=== PATIENT | female | born 1985 | race Caucasian/White ===

== ENCOUNTER 2018-07-10 15:23 | Emergency (ER) | payer BC ==
[2018-07-10 15:40] VITALS: BP 110/66
--- NOTE | 2018-07-11 12:55 | UC ---
- Progress Note Progress Note: LWBS. NO IMAGING Discharge - Sign-Out/Discharge Documenting (check all that apply): Post-Discharge Follow Up All imaging exams completed and their final reports reviewed: No Studies - Discharge Plan Disposition: LEFT WITHOUT BEING SEEN Referrals: Robina Garcia MD [Primary Care Provider] - - Billing Disposition and Condition Disposition: Left Without Being Seen
== END 2018-07-10 16:50 | disposition left against medical advice (07) ==
LOC: UCEAST 15:23
DX: J06.9 Acute upper respiratory infection, unspecified (principal); Z53.21 Procedure and treatment not carried out due to patient leaving prior to being seen by health care provider

== ENCOUNTER 2018-07-17 00:35 | Emergency (ER) | payer BC ==
--- OUTSIDE RECORDS SUMMARY | 2018-07-17 00:56 | XMS REPORT ---
:1985 Author Organization [facility] OBN Address [address] [place] [address] Care Team Providers Name Role Phone Aleshia Saxena Unavailable Unavailable PROBLEMS Type Condition ICD9-CM [id number] Onset Condition SNOMED Code Code Code Dates Status Problem Irregular N92.6 Active 52385670 menstruation, unspecified Problem Pelvic and R10.2 Active 293951325 perineal pain Problem Dysmenorrhea, N94.6 Active 164234980 unspecified Problem Benign N85.01 Active 285922600824735 endometrial hyperplasia Problem Displacement of T83.32XD Active 62015820111745533 intrauterine contraceptive device, subsequent encounter Problem Family history of Z80.3 Active 227462404 malignant neoplasm of breast Problem Unspecified K29.51 Active chronic gastritis with bleeding Problem Personal history Z85.850 Active 405594411 of malignant neoplasm of thyroid Problem Unspecified N83.202 Active 33847450249092796 ovarian cyst, left side Problem Lichen simplex L28.0 Active 40278330 chronicus ALLERGIES Substance Reaction Event Type Date Status tetracycline unsure/childhood Drug Allergy Jul, Active ENCOUNTERS Encounter Location Date Diagnosis [address] Aug, [facility] [address] [place], [place] [id number] [address] Jul, [facility] [address] [place], [place] [id number] Formerly [facility] 103 Jul, Encounter for OBGYN [facility], gynecological examination [place] [id number] (general) (routine) without abnormal findings Z01.419 ; Pelvic and perineal pain R10.2 ; Encounter for screening for malignant neoplasm of cervix Z12.4 ; Unspecified ovarian cyst, left side N83.202 ; Encounter for screening for infections with a predominantly sexual mode of transmission Z11.3 ; Lichen simplex chronicus L28.0 ; Benign endometrial hyperplasia N85.01 ; Displacement of intrauterine contraceptive device, subsequent encounter T83.32XD and Family history of malignant neoplasm of breast Z80.3 [place] [facility] 103 Jul, Benign endometrial OBGYN [facility], hyperplasia N85.01 ; [place] [id number] Unspecified ovarian cyst, left side N83.202 and Encounter for routine checking of intrauterine contraceptive device Z30.431 [place] [facility] 103 May, OBG[place] [id number] [place] [facility] 103 May, [place] [id number] [place] [facility] 103 May, [place] [id number] [place] [facility] 103 May, [place] [id number] [place] [facility] 103 January, [place] [address] [place] [facility] 103 January, [place] [id number] [place] [facility] 103 January, [place] [id number] [place] [facility] 103 Jan, [place] [id number] [place] [facility] 103 Dec, Irregular menstruation, OBGYN [facility], unspecified N92.6 ; Pelvic [place] [id number] and perineal pain R10.2 and Unspecified ovarian cyst, left side N83.202 [place] [facility] 103 Dec, Left lower quadrant pain OBGYN [facility], R10.32 ; [place] [id number] menstruation, unspecified N92.6 and Encounter for routine checking of intrauterine contraceptive device Z30.[address] [facility] Dec, Irregular menstruation , O[address] [place] [address], unspecified N92.6 and [place] [id number] Displacement of intrauterine contraceptive device, [facility] encounter T[facility].32[facility] 28 Jun, 2017 OBGYN [facility] [place] [id number] [facility] May, [facility]hen simplex [facility] L28.0 ; [place] [id number] menstruation, unspecified N92.6 and Unspecified chronic gastritis with bleeding K29.51 [facility] 103 May, [facility] menstruation, [facility], unspecified N92.6 ; Pelvic [place] [id number] and perineal pain R10.2 and Encounter for routine checking of intrauterine contraceptive device Z30.431 [place] [facility] [address] [place] [address] [facility] Apr, Noninflammatory disorder [facility] [place] [address], of vulva and perineum, [place] [address] unspecified N90.[address] [place] [address] Apr, Dysmenorrhea, unspecified [address] [place] [address], N94.6 ; [place] [id number] menstruation, unspecified N92.6 ; Pelvic and perineal pain R10.2 ; Personal history of malignant neoplasm of thyroid Z85.850 ; Unspecified chronic gastritis with bleeding K29.51 and Noninflammatory disorder of vulva and perineum, unspecified N90.9 [facility] Apr, [place] [address] [address] January, Encounter for insertion of [address] [place], intrauterine contraceptive [place] [id number] device Z30.430 [facility] January, O[place] [id number] [facility] 103 January, [place] [id number] [address] January, Dysmenorrhea, unspecified [address]BG[address] [place], N94.6 ; [place] [id number] menstruation, unspecified N92.6 ; Pelvic and perineal pain R10.2 ; Personal history of malignant neoplasm of thyroid Z85.850 and Unspecified chronic gastritis with bleeding K29.[address] Jan, Dysmenorrhea, unspecified OBG[address] [place], N94.6 ; [place] [id number] menstruation, unspecified N92.6 and Pelvic and perineal pain R10.2 [facility] Dec, [place] [id number] [facility] 103 Nov, [place] [id number] [facility] 103 Oct, O[place], [place] [id number] [facility] 103 Oct, Dysmenorrhea, unspecified [facility], N94.6 ; [place] [id number] menstruation, unspecified N92.6 ; Pelvic and perineal pain R10.2 and Personal history of malignant neoplasm of thyroid Z85.850 [facility] [address], Oct, Dysmenorrhea, unspecified [facility] [place] [id number] N94.6 ; Pelvic and perineal pain R10.2 ; Polyp of corpus uteri N84.0 and Irregular menstruation, unspecified N92.[address] Oct, Dysmenorrhea, unspecified OBGYN [address] [place], N94.6 ; [place] [id number] menstruation, unspecified N92.6 ; Pelvic and perineal pain R10.2 and Personal history of malignant neoplasm of thyroid Z85.850 [facility] Sep, [place] [id number] [facility] 103 Sep, [place] [id number] [address] Sep, Dysmenorrhea, unspecified OBG[address] [place], N94.6 ; [place] [id number] menstruation, unspecified N92.6 ; Pelvic and perineal pain R10.2 and Personal history of malignant neoplasm of thyroid Z85.850 [facility] 103 Aug, [place] [id number] [address] Aug, Irregular menstruation , [address] [place], unspecified N92.6 ; [place] [id number] Dysmenorrhea, unspecified N94.6 and Pelvic and perineal pain R10.2 [facility] 103 08 Aug, 2016 Pelvic [facility]al [facility], R10.2 ; D[place]menorrhea, [place] [id number] unspecified N94.6 and [place] menstruation, unspecified N92.6 [facility] 103 08 Aug, 2016 Pelvic and perineal pain OBN [facility], R10.2 ; [place] [id number] menstruation, unspecified N92.6 ; Dysmenorrhea, unspecified N94.6 and Polyp of corpus uteri N84.0 [facility] 103 Jul, [place] [id number] [address] Jul, Pelvic and perineal pain [address] [place], R10.2 ; Dysmenorrhea, [place] [id number] unspecified N94.6 and [place] menstruation, unspecified N92.6 IMMUNIZATIONS No Known Immunizations SOCIAL HISTORY Never Assessed REASON FOR REFERRAL FUNCTIONAL STATUS PLAN OF CARE Activity Details Follow Up lab slip, 1 Year Annual Exam w/US, due for vulvar colpo Reason: Pending Test Leukorrhea Panel by Swab {contains Nikki Gardnerella Trich CTNG} Pending Test ThinPrep Pap Test _ use Standing Order Pending Test HEPATITIS B SURFACE ANTIGEN Pending Test Treponema Antibody Woods Pending Test ANTIBODY DETECTION-HIV1/2 SCRN Pending Test HEPATITIS C ANTIBODY VITAL SIGNS Height 62 in 2018-07-11 Weight 113 lbs 2018-07-11 BMI 20.67 kg/m2 2018-07-11 Blood pressure systolic 120 mm Hg 2018-07-11 Blood pressure diastolic 82 mm Hg 2018-07-11 MEDICATIONS Medication Instructions Dosage Frequency Start End Duration Status Date Date levothyroxine 150 orally once a day 1 tab(s) 24h Active mcg (0.15 mg) clobetasol topical applied topically Jul, days Active 0.05% 2 times a day x 3 2017 weeks when symptomatic, then weekly levocetirizine 5 orally once a day 1 tab(s) Active mg (in the evening) Mirena 52 mg by intrauterine 1 ea Active administration once Symbicort 80 inhaled 2 times a 2 puff(s) 12h Active mcg-4.5 mcg/inh day PROCEDURES No Known procedures RESULTS No Results REASON FOR VISIT annual/US fup, pap, PT would like STD screening. Insurance Providers [facility] Patient Patient Patient Patient Patient Subscriber Subscriber Subscriber Group Insurance Plan Plan Plan Plan ID Relationship Address Phone Name Date of ID Name Date of No Type Insurance Insurance Insurance Coverage to Subscriber Address Phone Name Dates [facility] [phone] [facility] self [place] [id number] [place] [address] [place] Plan [facility] [id number] MEDICAL (GENERAL) HISTORY Type Description Date Medical History Asthma Medical History Stomach Ulcer Medical History Eczema Medical History Thyroid Ca- Hashimotos thyroid lead into thyroid cancer Medical History Reynaulds Surgical History thyroidectomy 2012 Surgical History Brooks Fundiplication 2004 Surgical History laparoscopy w/ possible excision of 10/20/16 endometriosis/hysteroscopy/D&C Hospitalization History see above
--- OUTSIDE RECORDS SUMMARY | 2018-07-17 00:56 | XMS REPORT ---
:1985 Author Name sound, ultra Care Team Providers Name Role Phone sound, ultra Unavailable Unavailable PROBLEMS Type Condition ICD9-CM [id number] Onset Condition SNOMED Code Code Code Dates Status Problem Irregular N92.6 Active 01424331 menstruation, unspecified Problem Pelvic and R10.2 Active 046350359 perineal pain Problem Dysmenorrhea, N94.6 Active 720934992 unspecified Problem Benign N85.01 Active 781683431842192 endometrial hyperplasia Problem Displacement of T83.32XD Active 38743224783819835 intrauterine contraceptive device, subsequent encounter Problem Family history of Z80.3 Active 783509653 malignant neoplasm of breast Problem Unspecified K29.51 Active chronic gastritis with bleeding Problem Personal history Z85.850 Active 528699116 of malignant neoplasm of thyroid Problem Unspecified N83.202 Active 08015082452550496 ovarian cyst, left side Problem Lichen simplex L28.0 Active 83980056 chronicus ALLERGIES No Information ENCOUNTERS Encounter Location Date Diagnosis [address] Aug, [facility] [address] [place] [id number] Jul, [address] [id number] Formerly [facility] 103 Jul, Encounter for OBGYN [facility], gynecological examination [place] [id number] (general) (routine) without abnormal findings Z01.419 ; [...] history of malignant neoplasm of breast Z80.3 [facility] 103 Jul, Benign endometrial OBGYN [facility], hyperplasia N85.01 ; [place] [id number] Unspecified ovarian cyst, left side N83.202 and Encounter for routine checking of intrauterine contraceptive device Z30.431 [place] [facility] 103 May, O[place] [id number] [facility] 103 May, [place] [id number] [facility] 103 May, [place] [address] [facility] 103 May, [place] [address] [facility] 103 January, [place] [address] [facility] 103 January, [place] [id number] [facility] 103 January, [place] [id number] [facility] 103 Jan, [place] [id number] [facility] 103 Dec, Irregular menstruation, OBGYN [facility], unspecified N92.6 ; Pelvic [place] [id number] and perineal pain R10.2 and Unspecified ovarian cyst, left side N83.202 [place] [facility] 103 Dec, Left lower quadrant pain OBGYN [facility], R10.32 ; [place] [id number] menstruation, unspecified N92.6 and Encounter for routine checking of intrauterine contraceptive device Z30.431 [place] [facility] [address] [place] Dec, Irregular menstruation , O[address]YN [address] [place], unspecified N92.6 and [place] [id number] Displacement of intrauterine contraceptive device, initial encounter T83.32XA [place] [facility] 103 Jun, OBG[place] [address] [place] [facility] 103 May, Lichen simplex chronicus OBGYN [facility], L28.0 ; [place] [id number] menstruation, unspecified N92.6 and Unspecified chronic gastritis with bleeding K29.51 [place] [facility] 103 May, [facility] menstruation, [facility] unspecified N92.6 ; [place] [id number] and perineal pain R10.2 and Encounter for routine checking of intrauterine contraceptive device Z30.431 [place] [facility] [address] [place] [address] [facility] Apr, Noninflammatory disorder [address] [place] [address], of vulva and perineum, [place] [address] unspecified N90.9 [place] [facility] [address] [place] [address] [place] Apr, Dysmenorrhea, unspecified [address] [place] [address], N94.6 ; [place] [id number] menstruation, unspecified N92.6 ; Pelvic and perineal pain R10.2 ; Personal history of malignant neoplasm of thyroid Z85.850 ; Unspecified chronic gastritis with bleeding K29.51 and Noninflammatory disorder of vulva and perineum, unspecified N90.9 [facility] 103 Apr, [place] [id number] [place] [facility] [address] [place] [address] [place] January, [facility] [address] [place] [address], intrauterine contraceptive [place] [id number] device Z30.430 [facility] January, [place] [id number] [place] [facility] 103 January, [place] [id number] [facility] January, Dysmenorrhea, unspecified [address] [place], N94.6 ; [place] [id number] menstruation, unspecified N92.6 ; Pelvic and perineal pain R10.2 ; Personal history of malignant neoplasm of thyroid Z85.850 and Unspecified chronic gastritis with bleeding K29.[address] Jan, Dysmenorrhea, unspecified [address] [place], N94.6 ; [place] [id number] menstruation, unspecified N92.6 and Pelvic and perineal pain R10.2 [facility] 103 Dec, [place] [id number] [facility] 103 Nov, [place] [address] [facility] 103 Oct, [place] [id number] [facility] 103 Oct, Dysmenorrhea, unspecified [facility], N94.6 ; [place] [id number] menstruation, unspecified N92.6 ; Pelvic and perineal pain R10.2 and Personal history of malignant neoplasm of thyroid Z85.850 [facility] [address] [place], Oct, Dysmenorrhea, unspecified Medical Center [place] [id number] N94.6 ; Pelvic and perineal pain R10.2 ; Polyp of corpus uteri N84.0 and [place] menstruation, unspecified N92.[address] [facility] Oct, Dysmenorrhea, unspecified [address] [place], N94.6 ; [place] [id number] menstruation, unspecified N92.6 ; Pelvic and perineal pain R10.2 and Personal history of malignant neoplasm of thyroid Z85.850 [facility] 103 Sep, [place]BG[place] [id number] [facility] 103 08 Dec, 2016 [place] [id number] [address] Sep, Dysmenorrhea, unspecified [facility] [address] [place] [address], N94.6 ; [place] [id number] menstruation, unspecified N92.6 ; Pelvic and perineal pain R10.2 and Personal history of malignant neoplasm of thyroid Z85.850 [facility] 103 Aug, [place] [id number] [address] Aug, [place]regular menstruation , [address] [place] [address], unspecified N92.6 ; [place] [id number] Dysmenorrhea, unspecified N94.6 and Pelvic and perineal pain R10.2 [facility] 103 Aug, Pel[facility] R10.2 ; D[place]menorrhea, [place] [id number] unspecified N94.6 and [place] menstruation, unspecified N92.6 [facility] 103 Aug, Pelvic and [facility]ineal pain [facility], R10.2 ; [place] [id number] menstruation, unspecified N92.6 ; Dysmenorrhea, unspecified N94.6 and Polyp of corpus uteri N84.0 [facility] 103 Jul, [place] [id number] [address] Jul, Pelvic and perineal pain [facility] [address] [place] [address], R10.2 ; Dysmenorrhea, [place] [id number] unspecified N94.6 and [place] menstruation, unspecified N92.6 IMMUNIZATIONS No Known Immunizations SOCIAL HISTORY Never Assessed REASON FOR REFERRAL FUNCTIONAL STATUS PLAN OF CARE VITAL SIGNS MEDICATIONS Unknown Medications PROCEDURES Procedure Date Ordered Result Body Site TRANSVAGINAL US, NON-OB Jul 11, 2018 3D rendering requiring imaging post processing Jul 11, 2018 RESULTS Name Result Date Reference Range Ultrasound : Pelvis REASON FOR VISIT pelvic US Insurance Providers [facility] Member Patient Patient Patient Patient Patient Subscriber Subscriber Subscriber Group Insurance Plan Plan Plan Plan ID Relationship Address Phone Name Date of ID Name Date of No Type Insurance Insurance Insurance Coverage to Subscriber Address Phone Name Dates [facility] [phone] [facility] self [place] [id number] [place] [address] [place] Plan [facility] [id number] MEDICAL (GENERAL) HISTORY Type Description Date Medical History Asthma Medical History Stomach Ulcer Medical History Eczema Medical History Thyroid Ca- Hashimotos thyroid lead into thyroid cancer Medical History [facility] Surgical History thyroidectomy 2011 Surgical History [facility] Fundiplication 2004 Surgical History laparoscopy w/ possible excision of 10/20/16 endometriosis/hysteroscopy/D&C Hospitalization History see above
--- NOTE | 2018-07-17 02:20 | ED ---
Psychiatric Complaint - HPI Summary HPI Summary: Patient is a 33 y/o F presenting to ED for a MHE. She states that she was talking to her therapist over the phone today. Patient notes that she has had a breakup with a significant other and "found out something today" with regards to her former SO. Patient's therapist was concerned for patient's safety and told her to come to ED for MHE. In the room, patient denies SI and thoughts of self-harm, states she was feeling very sad. On triage, pain is denied, nothing is noted to aggravate/alleviate Sx. Patient reports taking medications for thyroid. Home medications and allergies are reviewed. - History Of Current Complaint Chief Complaint: [facility]ental[facility] Time Seen by Provider: 07/17/18 00:49 Hx Obtained From: Patient Hx Last Menstrual Period: 3 wks ago Onset/Duration: Still Present Timing: Constant Severity Currently: None Character: Depressed Aggravating Factor(s): Nothing Alleviating Factor(s): Nothing Has Suicidal: Denies: Thoughts - Allergies/Home Medications Allergies/Adverse Reactions: Allergies Allergy/AdvReac Type Severity Reaction Status Date / Time tetracycline Allergy Unknown Verified 07/17/18 00:41 Reaction Details enviromental Allergy Mild eyes,nose Uncoded 07/17/18 00:41 occassional asthma PMH/Surg Hx/FS Hx/Imm Hx Endocrine/Hematology History: Reports: Hx Thyroid Disease Denies: Hx Diabetes Cardiovascular History: Denies: Hx Hypertension Respiratory History: Reports: Hx Asthma Denies: Hx Chronic Obstructive Pulmonary Disease (COPD) GI History: Reports: Other GI Disorders - gerd Denies: Hx Ulcer - Cancer History Cancer Type, Location and Year: thyroid CA - Surgical History Surgery Procedure, Year, and Place: thyroidectomy. [facility] Infectious Disease History: No Infectious Disease History: Reports: Traveled Outside the [place] in Last 30 Days Denies: Hx Clostridium Difficile, Hx Hepatitis, Hx Human Immunodeficiency Virus (HIV), Hx of Known/Suspected MRSA, Hx Shingles, Hx Tuberculosis - Family History Known Family History: Negative: Blood Disorder - Social History Alcohol Use: Occasionally Substance Use Type: Reports: None Smoking Status (MU): Never Smoked Tobacco Have You Smoked in the Last Year: No Review of Systems Negative: Fever - on vitals, temp is 98.5 F Positive: Depressed, Other - NEGATIVE: SI, thoughts of self-harm All Other Systems Reviewed And Are Negative: Yes Physical Exam - Summary Physical Exam Summary: VITAL SIGNS: Reviewed. GENERAL: Patient is a well-developed and nourished female who is lying comfortable in the stretcher. Patient is not in any acute respiratory distress. HEAD AND FACE: No signs of trauma. No ecchymosis, hematomas or skull depressions. No sinus tenderness. EYES: PERRLA, EOMI x 2, No injected conjunctiva, no nystagmus. EARS: Hearing grossly intact. Ear canals and tympanic membranes are within normal limits. MOUTH: Oropharynx within normal limits. NECK: Supple, trachea is midline, no adenopathy, no JVD, no carotid bruit, no c- spine tenderness, neck with full ROM. CHEST: Symmetric, no tenderness at palpation LUNGS: Clear to auscultation bilaterally. No wheezing or crackles. CVS: Regular rate and rhythm, S1 and S2 present, no murmurs or gallops appreciated. ABDOMEN: Soft, non-tender. No signs of distention. No rebound no guarding, and no masses palpated. Bowel sounds are normal. EXTREMITIES: FROM in all major joints, no edema, no cyanosis or clubbing. NEURO: Alert and oriented x 3. No acute neurological deficits. Speech is normal and follows commands. SKIN: Dry and warm Triage Information Reviewed: Yes Vital Signs On Initial Exam: Initial Vitals Temp Pulse Resp BP Pulse Ox 98.5 F 72 16 113/77 97 10 00:39 07/17/18 00:39 07/17/18 00:39 07/17/18 00:39 07/17/18 00:39 Vital Signs Reviewed: Yes Diagnostics - Vital Signs Vital Signs Temp Pulse Resp BP Pulse Ox 07/17/18 00:39 98.5 F 72 16 113/77 97 - Laboratory Lab Statement: Any lab studies that have been ordered have been reviewed, and results considered in the medical decision making process. Course/Dx - Course Course Of Treatment: Patient is a 33 y/o F presenting to ED for a MHE. She states that she was talking to her therapist over the phone today. Patient notes that she has had a breakup with a significant other and "found out something today" with regards to her former SO. Patient's therapist was concerned for patient's safety and told her to come to ED for MHE. In the room, patient denies SI and thoughts of self-harm, states she was feeling very sad. Physical exam was normal. 0310 - Dr. Pedraza recommends patient be discharged to home, Dr. Amaral is agreeable with this plan. Dx of adjustment disorder. - Differential Dx/Clinical Impression Provider Diagnosis: Adjustment disorder - Physician Notifications Discussed Care Of Patient With: Adarsh Pedraza Time Discussed With Above Provider: 03:10 Instructed by Provider To: Other - 0310 - Dr. Pedraza recommends patient be discharged to home, Dr. Amaral is agreeable with this plan. Dx of adjustment disorder. Discharge - Sign-Out/Discharge Documenting (check all that apply): Patient Departure - discharge - Discharge Plan Condition: Stable Disposition: HOME Referrals: Robina Garcia MD [Primary Care Provider] - - Attestation Statements Document Initiated by Scribe: Yes Documenting Scribe: Darion Navarro Provider For Whom Scribe is Documenting (Include Credential): Reece Amaral MD Scribe Attestation: I, Darion Navarro , scribed for Reece Amaral MD on 07/17/18 at 0349.
[2018-07-17 03:22] VITALS: BP 106/71
== END 2018-07-17 03:23 | disposition home or self-care (01) ==
LOC: ED 00:35
DX: F43.20 Adjustment disorder, unspecified (principal)
CPT/HCPCS: 99284